=== PATIENT | female | born 1985 | race Caucasian/White ===

== ENCOUNTER 2016-11-30 18:10 | Emergency (ER) | payer MEDICAID, OTHER ==
[~2016-11-30] VITALS: Ht 154.9 cm; Wt 60.0 kg
[2016-11-30 18:17] VITALS: Ht 154.9 cm; Wt 60.0 kg
--- NOTE | 2016-11-30 20:24 | RADRPT ---
PROCEDURE: XR Chest 1 View. CLINICAL INDICATION: Cough TECHNIQUE: AP view of the chest was obtained. COMPARISON: None. FINDINGS: The cardiomediastinal silhouette is within normal limits. No consolidations are identified. No pneu mothorax is seen. Osseous structures are intact. IMPRESSION: No visualized active disease. RPTAT: AA .Marcos Meneses MD, MD Date Time Electronically viewed and signed by .Marcos Meneses MD, on 11/30/2016 20:24 .P/
[2016-11-30] MEDS: LIDOCAINE/MYLANTA 40 ML BTL PO ONE ×2 (20:38→20:41)
[2016-11-30] MEDS ORDERED: FAMO-96 PO (20:41)
[2016-11-30] MEDS ORDERED: CETI10CA PO (20:42)
--- NOTE | 2016-12-01 00:32 | ERD ---
ER Documentation Chief Complaint Date/Time DATE: 12/01/16 TIME: 00:25 Chief Complaint pt bib self with c/o cough for a few days caused by heartburn, HPI Patient is a 31-year-old female who presents to the emergency department for concerns of a cough 3 days. Patient states her cough is dry in nature. Patient states that she "knows my cough is from heartburn". Patient states she is often having burping. Patient also reports a globus sensation in her throat. Patient reports ongoing postnasal drip. Patient does admit to occasional spicy and fried food intake. She denies any alcohol or NSAID use. Patient denies any chest pain, shortness of breath, nausea, vomiting, fever or chills. She has ongoing nasal congestion. She states over the last few days she was sleeping with the AC on however she did not last night because of her congestion. Patient denies any recent travel. No sick contacts. ROS All systems reviewed and are negative except as per history of present illness. Medications Home Meds Active Scripts Cetirizine Hcl* (Zyrtec*) 10 Mg Capsule, 10 MG PO DAILY, #30 TAB.CHEW Prov:CHRISTOPHER JENSEN PA-C 11/30/16 Famotidine* (Pepcid*) 20 Mg Tablet, 20 MG PO BID for 30 Days, TAB Prov:CHRISTOPHER JENSEN PA-C 11/30/16 Allergies Allergies: Coded Allergies: No Known Drug Allergy (Verified Allergy, Unknown, 04/20/09) PMhx/Soc Medical and Surgical Hx: pt denies Medical Hx, pt denies Surgical Hx History of Surgery: No Anesthesia Reaction: No Hx Neurological Disorder: No Hx Respiratory Disorders: No Hx Cardiac Disorders: No Hx Psychiatric Problems: No Hx Miscellaneous Medical Probl: No Hx Alcohol Use: No Hx Substance Use: No Hx Tobacco Use: No Smoking Status: Never smoker Physical Exam Vitals Vital Signs Date Time Temp Pulse Resp B/P Pulse Ox O2 Delivery O2 Flow Rate FiO2 11/30/16 18:17 97.8 74 18 123/73 98 Physical Exam GENERAL: Well-developed, well-nourished female. Appears in no acute distress. Speaking in full sentences. No abdominal retractions, nasal flaring, no tripoding. HEAD: Normocephalic, atraumatic. No deformities or ecchymosis. EYE: Pupils equal, round, and reactive to light. EOMs intact. No conjunctival erythema. No eye discharge. Allergic shiners noted bilaterally. ENT: External ear without any masses or tenderness. Nasal mucosa pink with no discharge. Oropharynx is pink without any tonsillar erythema or exudates. No uvula deviation. No kissing tonsils. NECK: Supple. No meningismus. Normal ROM of the neck. LUNG: Clear to auscultation bilaterally. No rhonchi, wheezing, rales or coarse breath sounds. HEART: Regular rate and rhythm. No murmurs, rubs or gallops. BACK: No midline tenderness. EXTREMITIES: Equal pulses bilaterally. No peripheral clubbing, cyanosis or edema. No unilateral leg swelling. NEUROLOGIC: Alert and oriented to person, place and time. Moving all four extremities. 5/5 strength in all extremities. Normal speech. Steady gait. SKIN: Normal color. Warm and dry. No rashes or lesions. Results 24 hrs Current Medications Medications (Trade) Dose Ordered Sig/Michel Route PRN Reason Start Time Stop Time Status Last Admin Dose Admin Miscellaneous Medication (Gi Cocktail (2)) 40 ml ONCE ONCE PO 11/30/16 19:30 11/30/16 19:31 DC Procedures/MDM ED COURSE: The patient was stable throughout ED course. I kept the patient and/or family informed of laboratory and diagnostic imaging results throughout the ED course. DIAGNOSTIC IMAGING: Read by radiologist. DIAGNOSTIC IMAGING REPORT Patient: MONIQUE WEBBER : 1985 Age: 31 Sex: F MR #: [id number] DOS: 11/30/16 1908 Ordering MD: CHRISTOPHER JENSEN PA-C Location: [facility] Room/Bed: PROCEDURE: XR Chest 1 View. CLINICAL INDICATION: Cough TECHNIQUE: AP view of the chest was obtained. COMPARISON: None. FINDINGS: The cardiomediastinal silhouette is within normal limits. No consolidations are identified. No pneumothorax is seen. Osseous structures are intact. IMPRESSION: No visualized active disease. RPTAT: AA .Marcos Meneses MD, Date Time Electronically viewed and signed by .Marcos Meneses MD, MD on 11/30/2016 20:24 .P/ CC: CHRISTOPHER JENSEN PA-C MEDICATIONS GIVEN: She was initially given a GI cocktail however she told nursing staff that she was unable to swallow it all. Upon reexamination, patient did verbalize to me that the GI cocktail did improve her symptoms. MEDICAL DECISION MAKING: This is a 31-year-old female presents with concerns of cough 3 days. She felt that her symptoms related to heartburn. Patient did admit to eating fried and spicy foods in the past. Patient also had concerns for postnasal drip and nasal congestion. Vital signs were reviewed. Patient was afebrile. Patient was not hypoxic. ENT exam was normal. Lung exam was normal. Chest x-ray was obtained. Chest x-ray was unremarkable. Patient did take some of the GI cocktail did report improvement in her symptoms. It is unclear if the patient' s symptoms are related to GERD versus allergic etiology. At this time I will treat the patient with Pepcid as well as Zyrtec. Low suspicion for pneumothorax , pneumonia, bronchitis, pleural effusion, meningitis, sinusitis, strep pharyngitis, epiglottitis or peritonsillar abscess. PRESCRIPTIONS: Pepcid, Zyrtec DISCHARGE: At this time, patient is stable for discharge and outpatient management. Supportive therapies such as OTC throat lozenges, salt water gurgles, popsicles and jello discussed. I have instructed the patient to follow-up with his/her primary care physician in 1-2 days. Patient advised she may need to follow-up with the GI specialist and/or ENT specialist for her symptoms. I have instructed the patient to promptly return to the ER for any new or worsening symptoms including increased pain, swelling, fever, nausea, vomiting, weakness or difficulty breathing. The patient and/or family expressed understanding of and agreement with this plan. All questions were answered. Home care instructions were provided. Disclaimer: Inadvertent spelling and grammatical errors are likely due to EHR/ dictation software use and do not reflect on the overall quality of patient care. Also, please note that the electronic time recorded on this note does not necessarily reflect the actual time of the patient encounter. Departure Diagnosis: Primary Impression: Cough Additional Impression: Post-nasal drip Condition: Stable Patient Instructions: Cough, Chronic, Uncertain Cause, (Adult) Additional Instructions: Call your primary care doctor TOMORROW for an appointment during the next 1-2 days.See the doctor sooner or return here if your condition worsens before your appointment time. CHRISTOPHER JENSEN PA-C Dec 01, 2016 00:32
== END 2016-11-30 21:03 | disposition home or self-care (01) ==
LOC: FTE 18:10
DX: R05 Cough (principal); R09.82 Postnasal drip
CPT/HCPCS: 71010; Z7502; Z7610